=== PATIENT | male | born 1955 | race Caucasian/White ===

== ENCOUNTER 2018-04-17 09:41 | Day surgery (SDC) | payer MEDICARE ==
[~2018-04-17] VITALS: Ht 175.3 cm; Wt 81.0 kg
[2018-04-17] MEDS ORDERED: ALBU0.63 NEB (10:57)
[2018-04-17] MEDS ORDERED: GUAI1TAB21 PO (10:57)
[2018-04-17] MEDS ORDERED: LOSA50TA14 PO (10:57)
[2018-04-17] MEDS ORDERED: CIPR250T27 PO (10:57)
[2018-04-17] MEDS ORDERED: IBUP-1484 PO (10:59)
[2018-04-17] MEDS ORDERED: CALC200T3 PO (10:59)
[2018-04-17] MEDS ORDERED: SODIUM CHLORIDE 0.9% 1,000 ML IV ONE (11:00)
[2018-04-17] MEDS ORDERED: PLEASE ENTER HEIGHT AND WEIGHT MC SCH (11:00)
[2018-04-17 11:02] LABS: ANION GAP 7 mmol/L (5-15); CALCIUM 9.9 mg/dL (8.5-10.1); CHLORIDE 104 mmol/L (98-107); CREATININE 1.33 mg/dL (0.7-1.3)
[2018-04-17 11:10] LABS: MEAN CORPUSCULAR HEMOGLOBIN 19.3 pg (27.5-34.5); MEAN CORPUSCULAR VOLUME 65.6 fL (81-97); MEAN PLATELET VOLUME 8.3 fL (7.4-10.4); PLATELET COUNT 394 x10^3/uL (130-400); RED BLOOD COUNT 3.89 x10^6/uL (4.38-5.82); RED CELL DISTRIBUTION WIDTH 17.2 % (9.4-14.8)
[2018-04-17 11:11] LABS: MEAN CORPUSCULAR HGB CONC 29.5 g/dL (33.2-36.2)
[2018-04-17 11:12] LABS: MD MORPH REVIEW ONLY
[2018-04-17 11:13] LABS: BASOPHILS # (AUTO) 0.08 x10^3/uL (0-0.1); BASOPHILS % (AUTO) 1 % (0-1); EOSINOPHILS # (AUTO) 0.33 x10^3/uL (0-0.4); EOSINOPHILS % (AUTO) 4 % (1-7); LYMPHOCYTES # (AUTO) 1.66 x10^3/uL (1-3.4); LYMPHOCYTES % (AUTO) 20 % (22-44); MONOCYTES # (AUTO) 0.56 x10^3/uL (0.2-0.8); MONOCYTES % (AUTO) 7 % (2-9); NEUTROPHILS # (AUTO) 5.55 x10^3/uL (1.8-6.8); NEUTROPHILS % (AUTO) 68 % (42-75)
[2018-04-17 11:14] LABS: ANISOCYTOSIS 1+; HYPOCHROMIA 2+; MICROCYTOSIS 2+
[2018-04-17 11:21] LABS: <PLATELET ESTIMATE> ADEQUATE; <PLT MORPHOLOGY> NORMAL PLT MORPH; POLYCHROMASIA 1+; STOMATOCYTES 1+
[2018-04-17 11:22] LABS: OVALOCYTES 1+
[2018-04-17] MEDS ORDERED: TICAGRELOR 90 MG TABLET ONE (11:34)
[2018-04-17] MEDS ORDERED: VERAPAMIL 2.5 MG/ML, 2ML ONE (11:34)
[2018-04-17] MEDS ORDERED: FENTANYL PF 100 MCG/2ML ONE (11:34)
[2018-04-17] MEDS ORDERED: BIVALIRUDIN 250 MG ONE (11:34)
[2018-04-17] MEDS ORDERED: MIDAZOLAM 1 MG/ML, 5ML ONE (11:34)
[2018-04-17] MEDS ORDERED: LIDOCAINE-MPF 1%, 5ML ONE (11:35)
[2018-04-17] MEDS ORDERED: HEPARIN 1,000 UNITS/ML, 10ML ONE (11:35)
[2018-04-17] MEDS ORDERED: SODIUM CHLORIDE 0.9% 1,000 ML IV SCH (12:37)
== END 2018-04-17 14:54 | disposition home or self-care (01) ==
LOC: CACL 09:41
PROVIDERS: ATTEND Internal Medicine Cardiovascular Disease
DX: I25.10 Atherosclerotic heart disease of native coronary artery without angina pectoris (principal); I35.0 Nonrheumatic aortic (valve) stenosis; I10 Essential (primary) hypertension; J45.909 Unspecified asthma, uncomplicated
CPT/HCPCS: 36415; 80048; 85025; 93454; 99156; C1769; C1894; J1644; J2250; J3010; Q9967; J0583

== ENCOUNTER → 2018-08-01 | Outpatient (CLI) | payer MEDICARE ==
[~2018-08-01] MED LIST: ALBU0.63 NEB; ALBU2.5V NPPB; AMLO10TA8 PO; ASPI81TA45 PO; CALC200T3 PO; CIPR250T27 PO; CLOP75TA PO; FURO-92 PO; GUAI1TAB21 PO; HYDR-3240 PO; IBUP-1484 PO; LOSA25TA25 PO; LOSA50TA14 PO; POTA20TA6 PO; PRED20TA PO
[2018-08-01 12:35] LABS: CHLORIDE 105 mmol/L (98-107)
[2018-08-01 12:57] LABS: ALANINE AMINOTRANSFERASE 24 U/L (12-78); ALBUMIN 3.5 g/dL (3.4-5.0); ALKALINE PHOSPHATASE 73 U/L (45-117); ANION GAP 3 mmol/L (5-15); BILIRUBIN,TOTAL 0.4 mg/dL (0.2-1.0); CALCIUM 9.3 mg/dL (8.5-10.1); CREATININE 1.22 mg/dL (0.7-1.3); TOTAL PROTEIN 7.1 g/dL (6.4-8.2)
[2018-08-01 13:12] LABS: BASOPHILS # (AUTO) 0.03 x10^3/uL (0-0.1); BASOPHILS % (AUTO) 1 % (0-1); EOSINOPHILS # (AUTO) 0.65 x10^3/uL (0-0.4); EOSINOPHILS % (AUTO) 9 % (1-7); LYMPHOCYTES # (AUTO) 1.21 x10^3/uL (1-3.4); LYMPHOCYTES % (AUTO) 17 % (22-44); MD MORPH REVIEW ONLY; MEAN CORPUSCULAR HEMOGLOBIN 19.6 pg (27.5-34.5); MEAN CORPUSCULAR VOLUME 67.4 fL (81-97); MEAN PLATELET VOLUME 8.3 fL (7.4-10.4); MONOCYTES # (AUTO) 0.54 x10^3/uL (0.2-0.8); MONOCYTES % (AUTO) 8 % (2-9); NEUTROPHILS % (AUTO) 66 % (42-75); PLATELET COUNT 526 x10^3/uL (130-400); RED BLOOD COUNT 4.02 x10^6/uL (4.38-5.82); RED CELL DISTRIBUTION WIDTH 18.3 % (9.4-14.8)
[2018-08-01 13:13] LABS: ANISOCYTOSIS 1+; MICROCYTOSIS 1+
[2018-08-01 13:14] LABS: HYPOCHROMIA 2+; POLYCHROMASIA 1+
[2018-08-01 13:17] LABS: <PLATELET ESTIMATE> INCREASED; <PLT MORPHOLOGY> NORMAL PLT MORPH
== END | disposition home or self-care (01) ==
LOC: CFH 09:47
PROVIDERS: ATTEND Registered Nurse
DX: I34.0 Nonrheumatic mitral (valve) insufficiency (principal); I34.8 Other nonrheumatic mitral valve disorders; I10 Essential (primary) hypertension; Z95.4 Presence of other heart-valve replacement
CPT/HCPCS: 36415; 80053; 85025; 93306

== ENCOUNTER 2018-08-08 13:03 | Outpatient (CLI) | payer MEDICARE | END 2018-08-08 23:59 | disposition home or self-care (01) | LOC: CFH 13:03 | PROVIDERS: ATTEND Nurse Practitioner Family | DX: K44.9 Diaphragmatic hernia without obstruction or gangrene (principal); J98.4 Other disorders of lung; I10 Essential (primary) hypertension; I35.0 Nonrheumatic aortic (valve) stenosis; J96.00 Acute respiratory failure, unspecified whether with hypoxia or hypercapnia; R03.0 Elevated blood-pressure reading, without diagnosis of hypertension; R94.31 Abnormal electrocardiogram [ECG] [EKG] | CPT/HCPCS: 71046 ==

== ENCOUNTER → 2018-08-30 | Outpatient (CLI) | payer MEDICARE ==
[2018-08-30 15:37] LABS: MD YES; MEAN CORPUSCULAR HEMOGLOBIN 22.3 pg (27.5-34.5); MEAN CORPUSCULAR VOLUME 74.7 fL (81-97); PLATELET COUNT 462 x10^3/uL (130-400); RED BLOOD COUNT 4.46 x10^6/uL (4.38-5.82); RED CELL DISTRIBUTION WIDTH 28.2 % (9.4-14.8)
[2018-08-30 16:07] LABS: BASOPHILS # (AUTO) 0.06 x10^3/uL (0-0.1); BASOPHILS % (AUTO) 1 % (0-1); EOSINOPHILS # (AUTO) 0.89 x10^3/uL (0-0.4); EOSINOPHILS % (AUTO) 10 % (1-7); LYMPHOCYTES # (AUTO) 1.15 x10^3/uL (1-3.4); LYMPHOCYTES % (AUTO) 13 % (22-44); MEAN CORPUSCULAR HGB CONC 29.8 g/dL (33.2-36.2); MONOCYTES % (AUTO) 7 % (2-9); NEUTROPHILS % (AUTO) 69 % (42-75)
[2018-08-30 16:10] LABS: ANISOCYTOSIS 2+; BASOS#(MANUAL) 0.09 x10^3/uL (0-0.1); BASOS% (MANUAL) 1 % (0-1); EOS#(MANUAL) 0.78 x10^3/uL (0.0-0.4); EOS% (MANUAL) 9 % (1-7); HYPOCHROMIA 2+; LYMPH#(MANUAL) 1.91 x10^3/uL (1-3.4); LYMPHS% (MANUAL) 22 % (22-44); MICROCYTOSIS 1+; MONOS#(MANUAL) 0.35 x10^3/uL (0.3-2.7); MONOS% (MANUAL) 4 % (2-9); POLYCHROMASIA 1+; SEG#(MANUAL) 5.57 x10^3/uL (1.8-6.8); SEGS% (MANUAL) 64 % (42-75)
[2018-08-30 16:12] LABS: <PLATELET ESTIMATE> INCREASED; <PLT MORPHOLOGY> NORMAL PLT MORPH
== END | disposition home or self-care (01) ==
LOC: CFH 14:50
PROVIDERS: ATTEND Nurse Practitioner Family
DX: Z13.6 Encounter for screening for cardiovascular disorders (principal); I11.0 Hypertensive heart disease with heart failure; I50.31 Acute diastolic (congestive) heart failure; R94.31 Abnormal electrocardiogram [ECG] [EKG]
CPT/HCPCS: 36415; 85025

== ENCOUNTER → 2018-09-23 | Outpatient (CLI) | payer MEDICARE ==
[2018-09-23 15:52] LABS: ANION GAP 6 mmol/L (5-15); CALCIUM 9.4 mg/dL (8.5-10.1); CHLORIDE 110 mmol/L (98-107)
[2018-09-23 15:53] LABS: CREATININE 1.47 mg/dL (0.7-1.3)
== END | disposition home or self-care (01) ==
LOC: CFH 14:48
PROVIDERS: ATTEND Registered Nurse
DX: I35.0 Nonrheumatic aortic (valve) stenosis (principal); I50.31 Acute diastolic (congestive) heart failure; D62 Acute posthemorrhagic anemia
CPT/HCPCS: 36415; 80048